=== PATIENT | female | born 1980 | race Caucasian/White ===

== ENCOUNTER 2018-08-02 06:44 | Day surgery (SDC) | payer SELFPAY ==
[2018-07-27 09:34] VITALS: BMI 21.4
[2018-08-02] MEDS ORDERED: ceFAZolin SODIUM 1 GM VIAL ONE ×2 (07:23→07:25)
[2018-08-02] MEDS ORDERED: GENTAMICIN SO4 80 MG/2 ML VIAL ONE (07:23)
[2018-08-02] MEDS ORDERED: LIDOCAINE HCL 1%, 10 MG/ML (20ML VIAL) ONE (07:24)
[2018-08-02] MEDS ORDERED: EPINEPHrine/PF 1 MG/1 ML (1:1,000) AMPULE ONE (07:24)
[2018-08-02] MEDS ORDERED: BACITRACIN 15 GM TUBE TOPICAL OINTMENT ONE (07:24)
[2018-08-02] MEDS ORDERED: LIDOCAINE 1%/EPI 1:100000 (20 ML MULTI DOSE VIAL) ONE (07:24)
[2018-08-02] MEDS ORDERED: fentaNYL CITRATE 250 MCG/5 ML VIAL ONE (07:25)
[2018-08-02] MEDS ORDERED: ONDANSETRON 4 MG/2 ML VIAL ONE (07:25)
[2018-08-02] MEDS ORDERED: DEXAMETHASONE SOD PHOSPHATE 4 MG/1 ML VIAL ONE (07:25)
[2018-08-02] MEDS ORDERED: PROPOFOL 20 ML ONE ×6 (07:26→09:11)
[2018-08-02] MEDS ORDERED: MIDAZOLAM HCL 2 MG/2 ML SINGLE DOSE VIAL ONE (07:26)
[2018-08-02] MEDS ORDERED: SCOPOLAMINE HYDROBROMIDE 1 PATCH PATCH.TD72 ONE ×2 (07:37→07:38)
[2018-08-02] MEDS ORDERED: LIDOCAINE HCL/PF 2% SDV 5ML VIAL ONE (07:45)
[2018-08-02] MEDS ORDERED: BUPIVACAINE LIPOSOME/PF (EXPAREL) 266 MG/20 ML VIAL ONE (08:05)
[2018-08-02] MEDS ORDERED: BUPIVACAINE HCL/PF 0.5% (5MG/ML) 10 ML VIAL ONE (08:07)
[2018-08-02] MEDS ORDERED: ePHEDrine SULFATE 50 MG/1 ML AMPULE ONE (08:13)
[2018-08-02] MEDS ORDERED: PHENYLEPHRINE HCL 10 MG/1 ML SINGLE DOSE VIAL ONE (08:16)
[2018-08-02] MEDS ORDERED: KETOROLAC TROMETHAMINE 30 MG/1 ML VIAL ONE (09:02)
[2018-08-02] MEDS ORDERED: ONDANSETRON 4 MG/2 ML VIAL IVPUSH PRN (10:42)
[2018-08-02] MEDS ORDERED: oxyCODONE HCL 5 MG TABLET PO PRN ×2 (10:42)
[2018-08-02] MEDS ORDERED: LACTATED RINGERS SOLUTION 1,000 ML IV SCH (10:45)
[2018-08-02 11:19] VITALS: TEMP 97.9
[2018-08-02] MEDS ORDERED: ACETAMINOPHEN 325 MG TABLET (FP) ONE (11:57)
[2018-08-02 13:00] VITALS: BP 103/52; PULSE 64
--- NOTE | 2018-08-05 10:41 | OP ---
DATE OF OPERATION: 08/02/2018 SURGEON: Subha Iqbal MD PREOPERATIVE DIAGNOSES: Bilateral capsular contracture, status post bilateral breast augmentation. POSTOPERATIVE DIAGNOSES: Bilateral capsular contracture, status post bilateral breast augmentation. OPERATIVE PROCEDURE: 1. Capsulectomy, right breast. 2. Capsulectomy, left breast. 3. Implant removal and replacement, right breast. 4. Implant removal and replacement, left breast. 5. Placement of Strattice acellular dermal matrix, right breast. 6. Placement of Strattice acellular dermal matrix, left breast. 7. Bilateral fat transfer to capsule, bilateral breasts. OPERATIVE INDICATIONS: The patient is a 37-year-old woman who underwent previous breast augmentation with textured, shaped, anatomical breast implants; style 410, Allergan, 375 mL volume. The patient has been noting over the past few years that her breasts have become significantly firmer and contracted with an upward and painful discomfort. The risks and benefits of surgical versus nonsurgical alternatives as well as the material complications of implant replacement, placement of acellular dermal matrix, and fat transfer for prevention of capsular contracture in the future were all discussed, including capsulectomy for capsular contracture. OPERATIVE PROCEDURE IN DETAIL: The patient was taken to the operating room and, after induction of general anesthesia in the supine position, both arms were extended and padded, Venodyne boots were placed. The entire chest wall was painted with ChloraPrep over its entire extent and, after timeout was achieved, 1% local lidocaine anesthesia with 1:100,000 epinephrine was injected into the planned incisions in the previous scar at the inframammary fold site. This scar was used because of the previous scar deformity and, after allowing topical anesthesia and hemostasis, an incision was made in the right breast, down through the skin, through the subcutaneous tissues, down to the underlying capsule of the implant. The capsule was then opened using the electrocautery and the implant visualized. The textured, shaped, 410, 375 mL implant was then removed and sent for pathologic diagnosis. The capsule itself was examined. The right breast showed a thickened capsule in all areas, especially on the posterior surface of the capsule, and this was carefully removed, performing capsulectomy in almost the entirety of the posterior and lateral and medial sides of the capsule itself. The anterior capsule appeared to be soft and noted not to be deformed in the soft tissues. These areas were left intact. Once this was accomplished, copious irrigation of the wound was performed with both Betadine, triple-antibiotic solution, and saline. Attention was then turned to the opposite left breast, which had a more significant capsular contracture. The exact same procedure was carried out, removing the implant and, upon visualizing the posterior and anterior capsules, large, thickened capsules were seen, which appeared to be double-capsule, as when the capsule was removed, there was a secondary capsule in the posterior space. All of the thickened capsule was removed from all parts of the pocket itself and good hemostasis was obtained throughout the pocket and, again, copious irrigation with triple-antibiotic solution, Betadine, and saline was carried out. At this point, an implant was chosen for replacement. A Sientra style 107 implant of 330 mL high-profile was chosen because this patient desires slightly smaller breast volume with less projection. A sizer was tried into the right and left breasts; showed good symmetry and good shape and overall contour compared to the preoperative situation. A sterile implant was then chosen and placed into the new pocket using the Escobedo funnel with the no-touch technique. Before this was inserted, small incisions were made in previous port sites from laparoscopy to harvest subcutaneous fat from the lateral flanks bilaterally. Approximately 20 mL of fatty material was then washed, cleansed, and prepared and 10 mL of fat was then injected into the area of the posterior capsule to prevent re-contracture and painter helper spray with the healing. This was carried out symmetrically on both sides, putting the subcutaneous tissue into the deep pocket around the previous deformed capsular contracture. The implants were then placed using the Escobedo funnel bilaterally. Good shape and contour were seen in the sitting position. The wounds were closed sterilely and symmetrically using 3-0 PDS suture on the deep tissues to form a new capsule in the new anatomic location and then multiple layers of suture using 3-0 PDS on the deep tissues and 4-0 Biosyn in a subcuticular fashion on the skin. Dry sterile dressings were placed after Dermabond and Steri-Strips were applied. Compression dressing with a Surgi-Bra was placed. She was awakened, extubated, and transferred to the recovery room in satisfactory condition and tolerated the procedure well. SUBHA IQBAL M.D. [facility]/[id number]
--- NOTE | 2018-08-14 16:08 | PATH ---
Surgical Pathology Report Patient Name: JESUS ZUNIGA Med. Rec. #: [id number] /Age/Gender: 1980 (Age: 37) / F Account: [id number] Location: [facility] AMBULATORY Taken: 08/02/2018 Received: 08/02/2018 Reported: 08/14/2018 Physicians: Asif Iqbal Specimen(s) Received A: BILATERAL BREAST IMPLANTS B: RIGHT BREAST CAPSULE C: LEFT BREAST CAPSULE Clinical History Bilateral breast capsular contracture, rule out capsular lesions, rule out ALCL Final Diagnosis A. BILATERAL BREAST IMPLANTS, REMOVAL: IMPLANTS, DESCRIBED (GROSS EXAMINATION ONLY). B. CAPSULE, RIGHT BREAST, CAPSULECTOMY: FIBROUS CAPSULE SHOWING FIBRINOUS EXUDATE, ACUTE AND CHRONIC INFLAMMATION, OLD HEMORRHAGE, HISTIOCYTIC/GIANT CELL REACTION AND DENSE FIBROSIS. (SEE NOTE) C. CAPSULE, LEFT BREAST, CAPSULECTOMY: FIBROUS CAPSULE SHOWING FIBRINOUS EXUDATE, ACUTE AND CHRONIC INFLAMMATION, HISTIOCYTIC/GIANT CELL REACTION AND DENSE FIBROSIS. (SEE NOTE) Note: There is no evidence of a lymphoproliferative process (anaplastic large cell lymphoma/ALCL) in this material. There are patchy areas of acute and chronic iflammation. The chronic inflammatory infiltrate is comprised of a polymorphous population of small lymphocytes and plasma cells. Immunostains performed at [place], [place] ([id number]) show a mixed population of T & B cells, positive for CD3 & CD20, respectively. No CD30 positive cells are identified. These findings support the diagnosis and aid in ruling out a lymphoproliferitve process/ ALCL. Electronically Signed Jasmyn Baxter M.D. Gross Description A. Received fresh labeled "bilateral breast implants," are 2 swanson, rubbery breast implants averaging 12 cm in diameter and 4 cm in depth. No soft tissue is present. No sections are submitted, gross only. B. Received in formalin labeled "right breast capsule," is a 7.5 x 7.0 x 0.5 cm aggregate of multiple portions of focally firm fibrous tissue, consistent with breast capsule. No discrete lesions are identified. Saxophone Player sections are submitted in 4 cassettes. C. Received in formalin labeled "left breast capsule," is a 10.0 x 6.5 x 0.5 cm aggregate of multiple portions of focally firm fibrous tissue, consistent with breast capsule. No discrete lesions are identified. Saxophone Player sections are submitted in 3 cassettes. 08/03/2018
== END 2018-08-02 13:15 | disposition home or self-care (01) ==
LOC: FASU 06:44
PROVIDERS: ATTEND Plastic Surgery
PROC: 0HUV0JZ Supplement Bilateral Breast with Synthetic Substitute, Open Approach (ICD-10-PCS; 2018-08-02)
PROC: 0HRV07Z Replacement of Bilateral Breast with Autologous Tissue Substitute, Open Approach (ICD-10-PCS; 2018-08-02)
PROC: 0HRV37Z Replacement of Bilateral Breast with Autologous Tissue Substitute, Percutaneous Approach (ICD-10-PCS; 2018-08-02)
PROC: 0HPU0JZ Removal of Synthetic Substitute from Left Breast, Open Approach (ICD-10-PCS; principal; 2018-08-02 08:04)
PROC: 0HPT0JZ Removal of Synthetic Substitute from Right Breast, Open Approach (ICD-10-PCS; 2018-08-02 08:04)
DX: T85.44XA Capsular contracture of breast implant, initial encounter (principal); Y82.8 Other medical devices associated with adverse incidents; Y92.9 Unspecified place or not applicable; Y83.8 Other surgical procedures as the cause of abnormal reaction of the patient, or of later complication, without mention of misadventure at the time of the procedure; Z98.82 Breast implant status
CPT/HCPCS: 88300-TC; 88305-TC; 94760